=== PATIENT | male | born 1930 | race Caucasian/White ===

== ENCOUNTER 2018-07-29 09:43 | Day surgery (SDC) | payer MEDICARE ==
[~2018-07-29 09:43] MED LIST: Lactated Ringers 1,000 ML IV PRN; Sodium Chloride 0.9% 10 ML Syringe FLUSH PRN
[2018-07-29] MEDS ORDERED: Sodium Chloride 0.9% 10 ML Syringe FLUSH PRN (10:00)
[2018-07-29] MEDS ORDERED: Lactated Ringers 1,000 ML IV PRN (10:00)
== END 2018-07-29 10:20 | disposition home or self-care (01) ==
LOC: FB.SDS 09:43
PROVIDERS: ATTEND Ophthalmology
DX: H26.9 Unspecified cataract (principal); Z53.8 Procedure and treatment not carried out for other reasons

== ENCOUNTER 2018-08-26 07:50 | Day surgery (SDC) | payer MEDICARE ==
[2018-08-26] MEDS ORDERED: Midazolam 1 MG/ML 2 ML SDV IV ONE (07:51)
[2018-08-26] MEDS ORDERED: Sodium Chloride 0.9% 10 ML Syringe FLUSH PRN (08:00)
--- NOTE | 2018-08-27 09:10 | OR ---
DATE OF OPERATION: 08/26/2018 SURGEON: Daisy Mendez MD PREOPERATIVE DIAGNOSIS: Visually significant cataract, right eye. POSTOPERATIVE DIAGNOSIS: Visually significant cataract, right eye. PROCEDURES PERFORMED: Complex phacoemulsification with intraocular lens placement, right eye. ASSISTANTS: None. ANESTHESIA: Local with sedation. COMPLICATIONS: None. BLOOD LOSS: None. IMPLANTS: George [id number] 21.0 Diopter lens implanted. CDE: 5.81. DESCRIPTION OF PROCEDURE: After risks and benefits were reviewed with the patient, consent was obtained in the preoperative area, and the operative eye was marked with a surgical pen. In the preoperative area, a pledget was used to dilate the pupil consisting of a mixture of phenylephrine 10%, cyclopentolate 2%, moxifloxacin 0.5%, and bupivacaine 0.75%. The patient was taken to the operating room, where a time-out was performed, and the patient was placed under monitored anesthesia care. Topical tetracaine was used for anesthesia. The operative eye was prepped and draped for ophthalmic surgery, and the microscope was brought into position and focussed. A paracentesis incision was made, followed by injection of preservative-free 1% lidocaine into the anterior chamber, followed by injection of Viscoat into the anterior chamber. A microkeratome blade was used to make a corneal limbal incision temporarily. Due to poor pupillary dilation, Malyugin ring was used to dilate the pupil to 6.25 mm. A cystotome was used to make the beginning of the capsulorrhexis, which was carried around 360 degrees in a curvilinear fashion using Utrata forceps. A Chavez cannula with BSS was used to hydrodissect and hydrodelineate the nucleus. The nucleus was removed in a divide and conquer manner using phacoemulsification. Irrigation and aspiration were used to remove the remaining cortical material. Provisc was used to inflate the capsular bag, and a pre-loaded George [id number], 21.0 Diopter lens, serial number [id number] was injected into the capsular bag. A Sinskey hook was used to position and center the lens. The Malyugin ring was then removed from the anterior chamber and discarded. Next, irrigation and aspiration was used to remove any remaining viscoelastic and cortical material from the anterior chamber. BSS on a cannula was used to inflate the anterior chamber and hydrate the wound. The wound was checked and found to be watertight. 1 mg of Moxifloxacin was injected into the anterior chamber. Drapes were removed and the eye was cleaned. A drop of brimonidine 0.15% and a drop of TobraDex was placed. The eye was shielded, and the patient was taken to the recovery room in stable condition. /[id number] KARLIE/KERON CC: ENOCH ANNE PA-C
== END 2018-08-26 10:22 | disposition home or self-care (01) ==
LOC: FB.SDS 07:50
PROVIDERS: ATTEND Ophthalmology
DX: H26.9 Unspecified cataract (principal); I42.9 Cardiomyopathy, unspecified; I48.2 Chronic atrial fibrillation; I13.0 Hypertensive heart and chronic kidney disease with heart failure and stage 1 through stage 4 chronic kidney disease, or unspecified chronic kidney disease; N18.3 Chronic kidney disease, stage 3 (moderate); I50.22 Chronic systolic (congestive) heart failure; E78.5 Hyperlipidemia, unspecified; M1A.39X0 Chronic gout due to renal impairment, multiple sites, without tophus (tophi); I73.9 Peripheral vascular disease, unspecified; I25.10 Atherosclerotic heart disease of native coronary artery without angina pectoris; H91.8X1 Other specified hearing loss, right ear; Z79.01 Long term (current) use of anticoagulants; Z88.6 Allergy status to analgesic agent; Z79.899 Other long term (current) drug therapy; Z79.82 Long term (current) use of aspirin; Z87.891 Personal history of nicotine dependence
CPT/HCPCS: 00142; 66982; J2250; V2632

== ENCOUNTER 2018-09-08 07:00 | Day surgery (SDC) | payer MEDICARE ==
[2018-09-08] MEDS ORDERED: Sodium Chloride 0.9% 10 ML Syringe IV ONE (07:01)
[2018-09-08] MEDS ORDERED: Midazolam 1 MG/ML 2 ML SDV IV ONE (07:01)
--- NOTE | 2018-09-08 14:04 | OR ---
DATE OF OPERATION: 09/08/2018 SURGEON: Daisy Mendez MD PREOPERATIVE DIAGNOSIS: Visually significant cataract, left eye. POSTOPERATIVE DIAGNOSIS: Visually significant cataract, left eye. PROCEDURES PERFORMED: Complex phacoemulsification with intraocular lens placement, left eye, CPT 28579. ASSISTANTS: None. ANESTHESIA: Local with sedation. COMPLICATIONS: None. BLOOD LOSS: None. IMPLANTS: 20.5 diopter lens implanted. CDE: 3.70. DESCRIPTION OF PROCEDURE: After risks and benefits were reviewed with the patient, consent was obtained in the preoperative area, and the operative eye was marked with a surgical pen. In the preoperative area, a pledget was used to dilate the pupil consisting of a mixture of phenylephrine 10%, cyclopentolate 2%, moxifloxacin 0.5%, and bupivacaine 0.75%. The patient was taken to the operating room, where a time-out was performed, and the patient was placed under monitored anesthesia care. Topical tetracaine was used for anesthesia. The operative eye was prepped and draped for ophthalmic surgery, and the microscope was brought into position and focussed. A paracentesis incision was made, followed by injection of preservative-free 1% lidocaine into the anterior chamber, followed by injection of Viscoat into the anterior chamber. A microkeratome blade was used to make a corneal limbal incision temporarily. A Malyugin ring was used to dilate the pupil to 6.25 mm due to poor pupillary dilation. A cystotome was used to make the beginning of the capsulorrhexis, which was carried around 360 degrees in a curvilinear fashion using Utrata forceps. A Chavez cannula with BSS was used to hydrodissect and hydrodelineate the nucleus. The nucleus was removed in a divide and conquer manner using phacoemulsification. Irrigation and aspiration were used to remove the remaining cortical material. Provisc was used to inflate the capsular bag, and a pre-loaded 20.5 diopter lens was injected into the capsular bag. A Sinskey hook was used to position and center the lens. The Malyugin ring was removed and discarded. Next, irrigation and aspiration was used to remove any remaining viscoelastic and cortical material from the anterior chamber. BSS on a cannula was used to inflate the anterior chamber and hydrate the wound. The wound was checked and found to be watertight. 1 mg of Moxifloxacin was injected into the anterior chamber. Drapes were removed and the eye was cleaned. A drop of brimonidine 0.15% and a drop of TobraDex was placed. The eye was shielded, and the patient was taken to the recovery room in stable condition. /[id number] KARLIE/KERON cc: Santi Miller [facility]
== END 2018-09-08 09:25 ==
LOC: FB.SDS 07:00
PROVIDERS: ATTEND Ophthalmology
DX: H25.812 Combined forms of age-related cataract, left eye (principal); H02.886 Meibomian gland dysfunction of left eye, unspecified eyelid; H02.883 Meibomian gland dysfunction of right eye, unspecified eyelid; H04.123 Dry eye syndrome of bilateral lacrimal glands; H52.13 Myopia, bilateral; I25.10 Atherosclerotic heart disease of native coronary artery without angina pectoris; I73.9 Peripheral vascular disease, unspecified; I25.2 Old myocardial infarction; I48.2 Chronic atrial fibrillation; I25.5 Ischemic cardiomyopathy; I13.0 Hypertensive heart and chronic kidney disease with heart failure and stage 1 through stage 4 chronic kidney disease, or unspecified chronic kidney disease; I50.22 Chronic systolic (congestive) heart failure; N18.4 Chronic kidney disease, stage 4 (severe); E78.00 Pure hypercholesterolemia, unspecified; J44.9 Chronic obstructive pulmonary disease, unspecified; M1A.9XX0 Chronic gout, unspecified, without tophus (tophi); Z88.5 Allergy status to narcotic agent; Z98.41 Cataract extraction status, right eye; Z96.1 Presence of intraocular lens; Z95.1 Presence of aortocoronary bypass graft; Z95.810 Presence of automatic (implantable) cardiac defibrillator; Z87.891 Personal history of nicotine dependence; Z79.82 Long term (current) use of aspirin; Z79.01 Long term (current) use of anticoagulants; Z79.899 Other long term (current) drug therapy
CPT/HCPCS: 00142; 66982; J2250; V2632

== ENCOUNTER 2018-09-30 19:30 | Emergency (ER) | payer MEDICARE ==
[2018-09-30] MEDS ORDERED: Iopamidol 755 Mg/ML 100 ML Bottle IV ONE (21:35)
[2018-09-30] MEDS ORDERED: Morphine 2 MG/ML Syringe IVPUSH ONE ×2 (21:39→23:18)
[2018-09-30] MEDS ORDERED: Sodium Chloride 0.9% 1,000 ML IV SCH (21:45)
--- NOTE | 2018-10-01 01:22 | EDM.PDOC ---
ED HPI GENERAL MEDICAL PROBLEM - General Chief Complaint: Abdominal Pain Stated Complaint: STOMACH PAIN Time Seen by Provider: 09/30/18 21:30 Source of Information: Reports: Patient, Family History Limitations: Reports: Physical Impairment (deaf ) - History of Present Illness INITIAL COMMENTS - FREE TEXT/NARRATIVE: patient presents with concern for inguinal hernia that had sudden worsening of pain about 4pm this afternoon. He had started to eat supper but wasn't able to finish due to sudden onset of pain. He did not vomit. He has had this for many years but lately it has been worsening. Was reduced in office a couple weeks ago by primary, today hasn't been able to get anything to make it feel better. No other symptoms or concerns. History CAD s/p CABG X3, ICD/pacemaker, atrial fibrillation, AAA repair. Patient is also deaf and communicates with a white board. right lower Q Pain Score (Numeric/FACES): 5 - Related Data Allergies Allergy/AdvReac Type Severity Reaction Status Date / Time tramadol Allergy Other Verified 09/30/18 19:46 Home Meds: Home Meds Acetaminophen 1,000 mg PO BID 07/28/18 [History] Albuterol [Ventolin HFA] 2 puff .XX ASDIRECTED PRN 07/28/18 [History] Allopurinol [Zyloprim] 300 mg PO DAILY 07/28/18 [History] Aspirin 81 mg PO DAILY 07/28/18 [History] Carvedilol 25 mg PO BIDMEALS 07/28/18 [History] Dextran 70/Hypromellose [Artificial Tears] 1 drop OP DAILY PRN 07/28/18 [History ] Gabapentin [Neurontin] 100 mg PO DAILY 07/28/18 [History] Isosorbide Mononitrate [Isosorbide Mononitrate ER] 30 mg PO DAILY 07/28/18 [ History] Lisinopril 2.5 mg PO DAILY 07/28/18 [History] Multivitamin [Multivitamins] 1 each PO DAILY 07/28/18 [History] Omeprazole 40 mg PO DAILY 07/28/18 [History] Prednisolone Acetate/Pf [Prednisolone Acet 1% Eye Drop] 5 ml OP DAILY 07/28/18 [ History] Simvastatin 20 mg PO DAILY 07/28/18 [History] Warfarin [Coumadin] 1.25 mg PO MOWESA 07/28/18 [History] Warfarin [Coumadin] 2.5 mg PO SUTUTHFR 07/28/18 [History] hydroCHLOROthiazide [Hydrochlorothiazide] 12.5 mg PO DAILY 07/28/18 [History] Alum Hydrox/Mag Hydrox/Simeth [Maalox Advanced] 10 - 20 ml PO QID PRN 08/24/18 [ History] Bisacodyl [Dulcolax] 10 mg PO BEDTIME PRN 08/24/18 [History] Dextromethorphan/guaiFENesin [Robitussin DM] 5 ml PO Q4H PRN 08/24/18 [History] Glycerin/Lanolin/Mineral Oil [Eucerin Intensive Repair Crm] 1 applic TP BID 10/05 [History] Loperamide [Imodium] 2 mg PO QID PRN 08/24/18 [History] Magnesium Hydroxide [Milk of Magnesia] 30 ml PO BEDTIME PRN 08/24/18 [History] Mineral Oil/Pramoxine/ZnOx [Anusol] 1 applic RECTAL ASDIRECTED PRN 08/24/18 [ History] Nitroglycerin [Nitrostat] 0.4 mg SL ASDIRECTED PRN 08/24/18 [History] Sodium Chloride 0.65% [[place] Saline] 2 - 3 sprays NASBOTH DAILY 08/24/18 [History] Acetaminophen 1 tab PO Q8HR PRN 09/07/18 [History] Gabapentin [Neurontin] 1 cap PO BID PRN 09/07/18 [History] Meclizine [Antivert] 0.5 tab PO BID PRN 09/07/18 [History] Past Medical History HEENT History: Reports: Cataract, Hard of Hearing Cardiovascular History: Reports: Afib, Aneurysm, CAD, Cardiomyopathy, Heart Failure, PVD Respiratory History: Reports: SOB Genitourinary History: Reports: Renal Disease, Other (See Below) Other Genitourinary History: GOUT, CHRONIC KIDNEY FAILURE Musculoskeletal History: Reports: Gout Neurological History: Reports: None Other Endocrine/Metabolic History: IMPAIRED FASTING GLUCOSE - Past Surgical History HEENT Surgical History: Reports: Cataract Surgery Cardiovascular Surgical History: Reports: AAA Repair, AICD, Coronary Artery Bypass, Pacer, Other (See Below) GI Surgical History: Reports: Cholecystectomy Other Musculoskeletal Surgeries/Procedures:: FINGER SURGERY Social & Family History - Family History Family Medical History: Noncontributory - Tobacco Use Smoking Status *Q: Former Smoker Used Tobacco, but Quit: Yes Month/Year Tobacco Last Used: 1959 - Caffeine Use Caffeine Use: Reports: Coffee - Alcohol Use Alcohol Use History: No ED ROS GENERAL - Review of Systems Review Of Systems: ROS reveals no pertinent complaints other than HPI. ED EXAM, GENERAL - Physical Exam Exam: See Below Free Text/Narrative:: General: alert, pleasant no acute distress, but uncomfortable appearing. Heart irregular, normal rate, lungs clear. Abdomen soft and nontender, with a large bulge in the area of right inguinal hernia. Bowel sounds auscultated in hernia. Patient is extremely uncomfortable with any movement or pressure. Peripheral pulses +2, no lower extremity edema. Strength equal bilaterally. Course - Vital Signs Text/Narrative:: inguinal hernia, concern for strangulation, labs ordered, NS IVF started at maintenance rate. Ice pack applied to area Last Recorded V/S: Last Vital Signs Temp 36.7 C 09/30/18 19:30 Pulse 67 09/30/18 19:30 Resp 18 09/30/18 19:30 BP 135/62 09/30/18 19:30 Pulse Ox 97 09/30/18 19:30 - Orders/Labs/Meds Orders: Active Orders 24 hr Category Date Time Status Abdomen Pelvis w Cont [CT] Stat Exams 09/30/18 21:41 Taken Sodium Chloride 0.9% [Normal Saline] 1,000 ml Med 09/30/18 21:45 Active IV ASDIRECTED Medication Orders Sodium Chloride (Normal Saline) 1,000 mls @ 125 mls/hr IV ASDIRECTED TATY Last Admin: 09/30/18 21:45 Dose: 125 mls/hr Labs: Laboratory Tests 09/30/18 09/30/18 09/30/18 Range/Units 20:50 20:50 20:50 WBC 9.9 (4.5-12.0) X10-3/uL RBC 3.89 L (4.30-5.75) x10(6)uL Hgb 12.7 L (13.5-17.8) g/dL Hct 38.5 (30.0-51.3) % MCV 99.1 H (80-96) fL MCH 32.6 (27.7-33.6) pg MCHC 32.9 (32.2-35.4) g/dL RDW 15.1 (11.5-15.5) % Plt Count 198 (125-369) X10(3)uL MPV 8.1 (7.4-10.4) fL Neut % (Auto) 71.2 (46-82) % Lymph % (Auto) 16.1 (13-37) % [place] % (Auto) 11.1 (4-12) % Eos % (Auto) 1 (1.0-5.0) % Baso % (Auto) 1 (0-2) % Neut # (Auto) 7.1 (1.6-8.3) # Lymph # (Auto) 1.6 (0.6-5.0) # [place] # (Auto) 1.1 (0.0-1.3) # Eos # (Auto) 0.1 (0.0-0.8) # Baso # (Auto) 0.0 (0.0-0.2) # PT 24.5 H (8.7-11.1) INR 2.55 H (0.89-1.13) Sodium 136 (135-145) mmol/L Potassium 4.7 (3.5-5.3) mmol/L Chloride 100 (100-110) mmol/L Carbon Dioxide 28 (21-32) mmol/L BUN 25 H (7-18) mg/dL Creatinine 1.2 (0.70-1.30) mg/dL Est Cr Clr Drug Dosing 37.66 mL/min Estimated GFR (MDRD) 57 L (>60) BUN/Creatinine Ratio 20.8 H (9-20) Glucose 111 (80-116) mg/dL Calcium 8.6 (8.6-10.2) mg/dL Meds: Medications Generic Name Dose Route Start Last Admin Trade Name Freq PRN Reason Stop Dose Admin Sodium Chloride 1,000 mls @ 125 mls/hr 09/30/18 21:45 09/30/18 21:45 Normal Saline IV 125 mls/hr ASDIRECTED TATY Administration Discontinued Medications Generic Name Dose Route Start Last Admin Trade Name Freq PRN Reason Stop Dose Admin Iopamidol 100 ml 09/30/18 21:35 09/30/18 22:01 Isovue-370 (76%) IV 09/30/18 21:36 99 ml ONETIME ONE Administration Morphine Sulfate 2 mg 09/30/18 21:39 09/30/18 21:46 Morphine IVPUSH 09/30/18 21:40 2 mg ONETIME ONE Administration Morphine Sulfate 2 mg 09/30/18 23:18 09/30/18 23:30 Morphine IVPUSH 09/30/18 23:19 2 mg ONETIME ONE Administration - Re-Assessments/Exams Free Text/Narrative Re-Assessment/Exam: 10/01/18 patient given 2mg morphine IV to help with pain labs reviewed - creatinine ok for CT scan, oral contrast given to patient Free Text/Narrative Re-Assessment/Exam: 10/01/18 CT scan completed. report shows no strangulation. Discussed with patient attempted reduction, he is agreeable. Attempted to manually reduce with minimal improvement and patient not really tolerating. Discussed possible transfer for admission if unable to reduce here tonight, as his heart history makes him ineligible for surgery at our facility. Call placed to general surgery who will come see patient Free Text/Narrative Re-Assessment/Exam: 10/01/18 Dr Hopkins able to manually reduce, assistance very much appreciated. Recommended patient be seen tomorrow if possible in [place] [facility], will need surgery there due to heart history, ER staff requested to help facilitate in the morning, will pass message along. Instructions given regarding activities and attempting to reduce at home. All questions answered. Departure - Departure Time of Disposition: 01:28 Disposition: Home, Self-Care 01 Condition: Good Clinical Impression: Hernia - Discharge Information *PRESCRIPTION DRUG MONITORING PROGRAM REVIEWED*: Not Applicable *COPY OF PRESCRIPTION DRUG MONITORING REPORT IN PATIENT [place]: Not Applicable Instructions: Hernia, Adult Referrals: Butch Clay MD [Primary Care Provider] - Forms: ED Department Discharge Additional Instructions: call [facility] surgery clinic in [place] in AM regarding scheduling. Staff at the ER will call also to help facilitate scheduling. #[phone] if recurrent pain, can lie completely flat, relax and gently try to push it back in - My Orders Last 24 Hours: My Active Orders 09/30/18 21:41 Abdomen Pelvis w Cont [CT] Stat 09/30/18 21:45 Sodium Chloride 0.9% [Normal Saline] 1,000 ml IV ASDIRECTED - Assessment/Plan Last 24 Hours: My Active Orders 09/30/18 21:41 Abdomen Pelvis w Cont [CT] Stat 09/30/18 21:45 Sodium Chloride 0.9% [Normal Saline] 1,000 ml IV ASDIRECTED
--- NOTE | 2018-10-01 08:16 | ER ---
DATE SEEN: 09/30/2018 HISTORY OF PRESENT ILLNESS: This 88-year-old male presented today with increased pain and swelling in the right groin. He has a long-standing known history of a right inguinal hernia, but tonight about supper time he noted some increased pain and swelling here and presented to the emergency room. He had felt some mild nausea, but did not have any vomiting. The patient was evaluated and was noted to have a bulge in the right groin, which was mildly tender. A CT scan of the abdomen was performed, which did confirm a right inguinal hernia, which contained some small bowel and fat, but no indication of strangulation was noted. PAST MEDICAL HISTORY: Significant for history of cardiac disease with atrial fibrillation and the presence of a pacemaker defibrillator. PHYSICAL EXAMINATION: GENERAL: On examination, the patient is alert. He is in no acute distress. GROIN: Examination of the groin area shows a bulge. He is mildly tender in the right groin. Left groin has had a previous hernia repair and no hernias noted on the outside. PROCEDURE: I laid the patient flat and used gentle pressure on the bulging right inguinal hernia and was able to reduce this completely. After the hernia was reduced, the patient indicated that this was the way it had been feeling for the last few weeks. He was not having any increased pain at the site. IMPRESSION: Right inguinal hernia with threatened incarceration. RECOMMENDATION: Since the patient has a cardiac defibrillator, any surgical repair will have to be performed at a facility that has resources to deal with this, so I have recommended that he be referred to [facility] for evaluation and scheduling of his hernia repair. Since he has had increased pain at this site this evening, we will try to get him in to be seen in the surgery clinic tomorrow so that surgical repair can be facilitated. It should be noted that because the patient is deaf, communication was performed with written word and with the help of the person accompanying him karuna. /[id number] TAIWO/KERON SUAREZ
== END 2018-10-01 01:55 | disposition home or self-care (01) ==
LOC: FB.ED 19:30
DX: K40.30 Unilateral inguinal hernia, with obstruction, without gangrene, not specified as recurrent (principal); I48.91 Unspecified atrial fibrillation
CPT/HCPCS: 36415; 74177; 80048; 85025; 85610; 96361; 96374; 96376; 99284; J2270; J7030; Q9967